=== PATIENT | male | born 1990 | race African-American/Black ===

== ENCOUNTER 2017-01-08 02:08 | Emergency (ER) | payer OTHER ==
[~2017-01-08] VITALS: Ht 177.8 cm; Wt 128.4 kg
[2017-01-08 03:14] VITALS: BP 145/88
[2017-01-08] MEDS ORDERED: PEPCID20 MG PO (03:17)
== END 2017-01-08 03:28 | disposition home or self-care (01) ==
LOC: ER 02:08
DX: R06.02 Shortness of breath (principal); I10 Essential (primary) hypertension; Z88.1 Allergy status to other antibiotic agents

== ENCOUNTER 2017-01-16 21:29 | Emergency (ER) | payer OTHER ==
[~2017-01-16] VITALS: Ht 177.8 cm; Wt 126.1 kg
[~2017-01-16 21:29] MED LIST: PEPCID20 MG PO
[2017-01-16] MEDS ORDERED: NORCO 5-325 TA1 EACH PO (21:40)
[2017-01-16 23:01] LABS: ABSOLUTE NEUTROPHILS 8.3 thou/uL (1.4-8.2); BASOPHILS 0.4 % (0.0-2.0); EOSINOPHILS 0.8 % (0.0-3.0); HEMATOCRIT 43.4 % (42.0-52.0); HEMOGLOBIN 13.8 gm/dL (14.0-18.0); LYMPHOCYTES 18.3 % (24.0-44.0); MCH 23.5 pg (26.0-34.0); MCHC 31.8 g/dL (28.0-37.0); MCV 74.1 fL (80.0-100.0); MONOCYTES 10.4 % (1.0-8.0); PLATELET COUNT 267 thou/uL (150-400); POLYS 70.1 % (36.0-66.0); RBC 5.86 mil/uL (4.50-6.00); RDW 15.4 % (10.5-14.5); WBC 11.9 thou/uL (4.0-11.0)
[2017-01-16 23:03] LABS: MANUAL DIFF NO
[2017-01-16 23:05] LABS: CALCIUM 9.1 mg/dL (8.5-10.1); POTASSIUM 3.5 mmol/L (3.5-5.1)
[2017-01-17 00:04] LABS: URINE BILIRUBIN NEGATIVE (Negative); URINE BLOOD NEGATIVE (Negative); URINE COLOR YELLOW; URINE GLUCOSE-RANDOM* NEGATIVE (Negative); URINE KETONES NEGATIVE (Negative); URINE LEUKOCYTES-REFLEX NEGATIVE (Negative); URINE PROTEIN (DIPSTICK) NEGATIVE (Negative)
[2017-01-17] MEDS ORDERED: NAPROSYN500 MG PO (00:46)
[2017-01-17 01:19] VITALS: BP 140/79
== END 2017-01-17 01:28 | disposition home or self-care (01) ==
LOC: ER 21:29
PROVIDERS: Emergency Medicine
DX: N99.821 Postprocedural hemorrhage of a genitourinary system organ or structure following other procedure (principal); M79.81 Nontraumatic hematoma of soft tissue; I10 Essential (primary) hypertension; Z98.890 Other specified postprocedural states; F10.99 Alcohol use, unspecified with unspecified alcohol-induced disorder; Z88.1 Allergy status to other antibiotic agents

== ENCOUNTER 2017-09-07 11:20 | Emergency (ER) | payer OTHER ==
[~2017-09-07] VITALS: Ht 177.8 cm; Wt 122.5 kg
[~2017-09-07 11:20] MED LIST changes: +NAPROSYN500 MG PO; +NORCO 5-325 TA1 EACH PO
[2017-09-07 11:51] VITALS: BP 129/78
[2017-09-07] MEDS ORDERED: MOBIC15 MG PO (12:02)
== END 2017-09-07 12:40 | disposition home or self-care (01) ==
LOC: ER 11:20
DX: S43.51XA Sprain of right acromioclavicular joint, initial encounter (principal); I10 Essential (primary) hypertension; Z88.1 Allergy status to other antibiotic agents; X58.XXXA Exposure to other specified factors, initial encounter; Y93.89 Activity, other specified; Y92.89 Other specified places as the place of occurrence of the external cause; Y99.8 Other external cause status